=== PATIENT | male | born 1995 | race Caucasian/White ===

== ENCOUNTER 2017-06-15 20:42 | Emergency (ER) | payer SELFPAY ==
[~2017-06-15] VITALS: Ht 167.6 cm; Wt 82.0 kg
[2017-06-15 21:25] VITALS: BP 137/78; PULSE 82; RESP 18; TEMP 97.8; O2SAT 99
[2017-06-15] MEDS ORDERED: MEDR4PAK PO (21:51)
[2017-06-15] MEDS ORDERED: ZITHTAB PO (21:51)
--- NOTE | 2017-06-15 21:56 | PD ---
HPI Chief Complaint: Cold / Flu Symptoms Time Seen by Provider: 21:32 Travel History International Travel<30 days: No Contact w/Intl Traveler<30days: No Traveled to known affect area: No History of Present Illness HPI Patient comes in complaining of sinus pressure, sinus congestion, and occasionally productive cough ongoing for little over a week. Patient reports trying multiple [id number] medications with minimal relief symptoms. Symptoms are worse first thing in the morning. Patient reports he just got back from a cruise. Patient reports that he was around someone with similar symptoms shortly before his symptoms began. He denies any known fevers, nausea , vomiting, chest pain, shortness of breath, neck pain, sore throat, or headaches. Denies any history of environmental allergies. Severity mild. PFSH Past Medical History Medical History: Denies Significant Hx Past Surgical History Surgical History: No Previous Surgery Social History Alcohol Use: No Tobacco Use: No Substance Use: No Allergies-Medications (Allergen,Severity, Reaction): Coded Allergies: No Known Allergies (Unverified Adverse Reaction, Unknown, 06/15/17) Reported Meds & Prescriptions Reported Meds & Active Scripts Active Medrol Dosepak (Methylprednisolone) 4 Mg Dspk 4 Mg PO DIRECTED Per Pharmacist direction Zithromax Z-Yadiel (Azithromycin) 250 Mg Dspk 250 Mg PO DIRECTED 500 MG (2 tabs) day 1, then 1 tab days 2-5. Review of Systems Except as stated in HPI: all other systems reviewed are Neg Physical Exam Narrative GENERAL: Well-developed, overly nourished, in no acute distress, and non-ill appearing. SKIN: Focused skin assessment warm and dry. HEAD: Atraumatic. Normocephalic. EYES: Pupils equal and round. EOMI. No scleral icterus. No injection or drainage. ENT: No nasal bleeding or discharge. Mucous membranes pink and moist. Tympanic membranes pearly lee bilaterally. Posterior pharynx nonerythematous without exudate. Uvula is midline. Patient swallowing own saliva and speaking full sentences without difficulty. NECK: Trachea midline. No cervical lymphadenopathy. Supple. No nuclear rigidity. CARDIOVASCULAR: Regular rate and rhythm. No murmur appreciated. RESPIRATORY: No accessory muscle use. No respiratory distress. Clear to auscultation. Breath sounds equal bilaterally. MUSCULOSKELETAL: No obvious deformities. No clubbing. No cyanosis. No edema. Full range of motion. NEUROLOGICAL: Awake and alert. No obvious cranial nerve deficits. Motor grossly within normal limits. Normal speech. PSYCHIATRIC: Appropriate mood and affect; insight and judgment normal. Data Data Last Documented VS Vital Signs Date Time Temp Pulse Resp B/P (MAP) Pulse Ox O2 Delivery O2 Flow Rate FiO2 06/15/17 21:25 97.8 82 18 137/78 (97) 99 Orders Orders Ed Discharge Order (06/15/17 21:56) MDM Medical Decision Making Medical Screen Exam Complete: Yes Emergency Medical Condition: Yes Differential Diagnosis Allergic sinusitis, bacterial sinusitis, URI, viral syndrome Narrative Course Patient looks great, non-ill appearing. The patient is tolerating fluids and is well hydrated. Appears acute sinusitis. No clinical evidence by history or evaluation to suspect meningitis and/or sepsis. There was no evidence to suggest deep abscess or cavernous sinus involvement. I discussed with the patient, diagnosis, plan of care, medications and to follow up with the patients primary physician and/or ENT. The patient was instructed to return if the worsens in anyway, especially if not tolerating fluids, increased sinus pain or swelling, headache, persistent fever, difficulty swallowing or breathing , or as needed. The patient agreed with plan. Patient in no obvious distress upon re-evaluation. Patient was asked if they wanted to speak to my attending, which the patient did not wish to do at this time. Any questions/concerns in reference to patient diagnosis/condition discussed and clarified prior to patient's discharge. Reinforced sheer importance of close follow up with patient's primary physician or primary care clinic and/or ENT. Instructed patient to return to ED immediately, if symptoms return/worsen. Patient showed understanding of above instructions. Further instructions and recommendations were detailed in discharge paperwork. Patient ambulated without difficulty out of ED at discharge. Diagnosis Primary Impression: Sinusitis Qualified Codes: J01.90 - Acute sinusitis, unspecified Referrals: Moreno Flores MD [facility] Patient Instructions: General Instructions, Sinusitis (ED) Additional Instructions: Follow-up with your primary care physician and/or ENT in 3-5 days for reevaluation. Take all medication as prescribed. Drink plenty of non- caffeinated and nonalcoholic fluids. Return to the emergency department if symptoms get worse. Med/Other Pt SpecificInfo: Prescription(s) given Scripts Methylprednisolone Dosepak (Medrol Dosepak) 4 Mg Dspk 4 MG PO DIRECTED, #1 DSPK 0 Refills Per Pharmacist direction Prov: Ren Swift MD 06/15/17 Azithromycin (Zithromax Z-Yadiel) 250 Mg Dspk 250 MG PO DIRECTED for Infection, #1 DSPK 0 Refills 500 MG (2 tabs) day 1, then 1 tab days 2-5. Prov: Ren Swift MD 06/15/17 Disposition: 01 DISCHARGE HOME Condition: Stable Binh Singh Jun 15, 2017 21:56
== END 2017-06-15 22:24 | disposition home or self-care (01) ==
LOC: NEPK 20:42
DX: J32.9 Chronic sinusitis, unspecified (principal)
CPT/HCPCS: 99283